=== PATIENT | female | born 1955 | race Caucasian/White ===

== ENCOUNTER → 2016-12-27 | Outpatient (CLI) | payer OTHER ==
[~2016-12-27] MED LIST: ASPIRIN 81M81 MG/TA2 PO; BLOOD PRESSURE MED; CHOLESTEROL MED; GLUCOPHAGE500 MG/TAB PO; SYNTHROID 0.0.025 MG PO
[2016-12-27 12:16] LABS: BASO # 0.1 (0.0-0.2); BASO % 1.4 % (0.0-2.0); EOS # 0.6 (0.0-0.7); GRAN # 4.3 (1.4-6.5); GRAN % 44.6 % (42.2-75.2); HEMATOCRIT 41.8 % (37.0-47.0); HEMOGLOBIN 13.9 g/dl (12.5-16.0); LYMPH # 3.9 (1.2-3.4); LYMPH % 40.8 % (20.0-51.0); MEAN CELL VOLUME 100 fl (80.0-100.0); MEAN CORPUSCULAR HEMOGLOBIN 33 pg (27.0-31.0); MEAN CORPUSCULAR HGB CONC 33 g/dl (33.0-37.0); MONO # 0.6 (0.1-0.6); MONO % 5.9 % (1.7-9.3); PLATELET COUNT 333 K/mm3 (130-400); RED BLOOD COUNT 4.18 M/mm3 (4.10-5.30); REDCELL DISTRIBUTION WIDTH-CV 14.1 % (11.5-14.5); WHITE BLOOD COUNT 9.7 K/mm3 (4.8-10.8)
[2016-12-27 12:32] LABS: ADJUSTED CALCIUM 9.5 mg/dL (8.4-10.2); ALBUMIN 4.8 gm/dL (3.5-5.0); BILIRUBIN,TOTAL 0.9 mg/dL (0.0-1.0); CALCIUM 10.1 mg/dL (8.4-10.2); CREATININE, serum 1.09 mg/dL (0.52-1.25); POTASSIUM 4.3 mmol/L (3.4-5.0); TOTAL PROTEIN 7.8 gm/dL (6.4-8.2)
[2016-12-27 12:47] LABS: THYROXINE (T4)-TOTAL 0.4 ug/dL (5.5-11.0)
[2016-12-27 13:22] LABS: THYROID STIMULATING HORMONE 49.6 uIU/mL (0.465-4.680)
== END ==
LOC: ZLAB.FHCC 11:46
DX: Z01.89 Encounter for other specified special examinations (principal)

== ENCOUNTER → 2017-01-02 | Outpatient (CLI) | payer OTHER | LOC: SUN.DIA 09:17 | DX: E11.65 Type 2 diabetes mellitus with hyperglycemia (principal); Z68.43 Body mass index [BMI] 50.0-59.9, adult; E66.9 Obesity, unspecified; Z71.3 Dietary counseling and surveillance; E78.5 Hyperlipidemia, unspecified; I10 Essential (primary) hypertension; E03.9 Hypothyroidism, unspecified ==

== ENCOUNTER → 2017-01-17 | Outpatient (CLI) | payer OTHER | LOC: COL.CARD 11:55 | DX: R60.0 Localized edema (principal) ==

== ENCOUNTER → 2017-02-02 | Outpatient (CLI) | payer SELFPAY | LOC: SUN.DIA 13:23 | DX: E11.65 Type 2 diabetes mellitus with hyperglycemia (principal); E66.9 Obesity, unspecified; Z68.42 Body mass index [BMI] 45.0-49.9, adult; Z71.3 Dietary counseling and surveillance; E78.5 Hyperlipidemia, unspecified; I10 Essential (primary) hypertension ==

== ENCOUNTER 2017-02-07 00:32 | Emergency (ER) | payer OTHER ==
[~2017-02-07] VITALS: Ht 170.2 cm; Wt 140.9 kg
[2017-02-07 00:36] VITALS: TEMP 97.2
[2017-02-07] MEDS ORDERED: GLUCOPHAGE500 MG/TAB PO (00:43)
[2017-02-07] MEDS ORDERED: ASPIRIN 81M81 MG/TA2 PO (00:43)
[2017-02-07] MEDS ORDERED: SYNTHROID 0.0.025 MG PO (00:44)
[2017-02-07] MEDS ORDERED: CHOLESTEROL MED (00:44)
[2017-02-07] MEDS ORDERED: BLOOD PRESSURE MED (00:44)
[2017-02-07 00:55] LABS: BASO # 0.1 (0.0-0.2); BASO % 0.8 % (0.0-2.0); EOS # 0.5 (0.0-0.7); EOS % 3.5 % (0-4.0); GRAN # 5.8 (1.4-6.5); GRAN % 44.2 % (42.2-75.2); HEMATOCRIT 40.7 % (37.0-47.0); HEMOGLOBIN 13.8 g/dl (12.5-16.0); LYMPH # 5.4 (1.2-3.4); LYMPH % 41.4 % (20.0-51.0); MEAN CELL VOLUME 98 fl (80.0-100.0); MEAN CORPUSCULAR HEMOGLOBIN 33 pg (27.0-31.0); MEAN CORPUSCULAR HGB CONC 34 g/dl (33.0-37.0); MEAN PLATELET VOLUME 9.8 fl (7.4-10.4); MONO # 1.2 (0.1-0.6); PLATELET COUNT 366 K/mm3 (130-400); RED BLOOD COUNT 4.15 M/mm3 (4.10-5.30); REDCELL DISTRIBUTION WIDTH-CV 12.9 % (11.5-14.5)
[2017-02-07 01:02] LABS: ADJUSTED CALCIUM 9.1 mg/dL (8.4-10.2); ALANINE AMINOTRANSFERASE 60 U/L (9-52); ALBUMIN 4.6 gm/dL (3.5-5.0); ALKALINE PHOSPHATASE 85 U/L (50-136); ANION GAP 13 mmol/L (7-16); BILIRUBIN,TOTAL 0.8 mg/dL (0.0-1.0); BLOOD UREA NITROGEN 16 mg/dL (7-17); CALCIUM 9.6 mg/dL (8.4-10.2); CARBON DIOXIDE 28 mmol/L (22-30); CHLORIDE 100 mmol/L (98-107); CREATININE, serum 0.87 mg/dL (0.52-1.25); GLUCOSE 90 mg/dL (74-106); POTASSIUM 3.8 mmol/L (3.4-5.0); SODIUM 141 mmol/L (137-145)
[2017-02-07 01:06] LABS: PROTHROMBIN TIME 10.8 SECONDS (9.7-12.8)
[2017-02-07 01:09] LABS: PARTIAL THROMBOPLASTIN TIME 28.7 SECONDS (26.0-37.0)
[2017-02-07 01:13] LABS: TROPONIN-I < 0.012 ng/mL (0.000-0.034)
[2017-02-07 03:12] VITALS: BP 121/68; PULSE 62
== END 2017-02-07 03:12 | disposition home or self-care (01) ==
LOC: COL.ER 00:32
PROVIDERS: Family Medicine
DX: R07.89 Other chest pain (principal); I10 Essential (primary) hypertension; E11.9 Type 2 diabetes mellitus without complications; Z79.84 Long term (current) use of oral hypoglycemic drugs
CPT/HCPCS: J1885

== ENCOUNTER → 2017-02-09 | Outpatient (CLI) | payer OTHER | LOC: COL.VAS 08:36 | DX: R94.31 Abnormal electrocardiogram [ECG] [EKG] (principal); R60.0 Localized edema ==

== ENCOUNTER → 2017-02-15 | Outpatient (CLI) | payer OTHER ==
[2017-02-15 12:14] LABS: ADJUSTED CALCIUM 9.1 mg/dL (8.4-10.2); BILIRUBIN,TOTAL 0.9 mg/dL (0.0-1.0); CALCIUM 9.1 mg/dL (8.4-10.2); CREATININE, serum 0.72 mg/dL (0.52-1.25); POTASSIUM 4.4 mmol/L (3.4-5.0); TOTAL PROTEIN 7.4 gm/dL (6.4-8.2)
== END ==
LOC: COL.LAB 09:53
DX: E11.9 Type 2 diabetes mellitus without complications (principal); E03.9 Hypothyroidism, unspecified

== ENCOUNTER → 2017-03-07 | Outpatient (CLI) | payer OTHER | LOC: MC.RAD 09:27 | DX: Z12.31 Encounter for screening mammogram for malignant neoplasm of breast (principal) ==

== ENCOUNTER 2017-10-22 10:38 | Emergency (ER) | payer SELFPAY ==
[~2017-10-22] VITALS: Ht 170.2 cm; Wt 138.6 kg
[2017-10-22 10:51] VITALS: TEMP 97.9
[2017-10-22] MEDS ORDERED: FORT1000TA (12:20)
[2017-10-22] MEDS ORDERED: DEMADEX10 MG PO (12:21)
[2017-10-22] MEDS ORDERED: PRINIVIL20 MG PO (12:22)
[2017-10-22] MEDS ORDERED: TYLENOL 325MG325 MG PO (12:23)
[2017-10-22] MEDS ORDERED: MEVACOR 20M20 MG/TAB PO (12:23)
[2017-10-22] MEDS ORDERED: DIABETA 5MG5 MG/TAB PO (12:24)
[2017-10-22] MEDS ORDERED: TOPROL XL 25MG25 MG PO (12:24)
[2017-10-22] MEDS ORDERED: LEVOXYL0.125 MG PO (12:25)
[2017-10-22 12:44] LABS: BASO # 0.1 (0.0-0.2); BASO % 0.7 % (0.0-2.0); EOS # 0.4 (0.0-0.7); EOS % 4.7 % (0-4.0); GRAN # 5.2 (1.4-6.5); GRAN % 57.8 % (42.2-75.2); HEMATOCRIT 39.9 % (37.0-47.0); HEMOGLOBIN 13.4 g/dl (12.5-16.0); LYMPH # 2.6 (1.2-3.4); LYMPH % 28.9 % (20.0-51.0); MEAN CELL VOLUME 93 fl (80.0-100.0); MEAN CORPUSCULAR HEMOGLOBIN 31 pg (27.0-31.0); MEAN CORPUSCULAR HGB CONC 34 g/dl (33.0-37.0); MEAN PLATELET VOLUME 10.3 fl (7.4-10.4); MONO # 0.6 (0.1-0.6); MONO % 7.1 % (1.7-9.3); PLATELET COUNT 326 K/mm3 (130-400); RED BLOOD COUNT 4.27 M/mm3 (4.10-5.30); REDCELL DISTRIBUTION WIDTH-CV 13.8 % (11.5-14.5)
[2017-10-22 12:54] LABS: ALANINE AMINOTRANSFERASE 51 U/L (9-52); ALBUMIN 4.3 gm/dL (3.5-5.0); ALKALINE PHOSPHATASE 76 U/L (50-136); ANION GAP 11 mmol/L (7-16); AST,SGOT 62 U/L (15-37); BILIRUBIN,TOTAL 0.7 mg/dL (0.0-1.0); BLOOD UREA NITROGEN 10 mg/dL (7-17); C-REACTIVE PROTEIN 0.8 mg/dL (0.0-0.9); CALCIUM 10.2 mg/dL (8.4-10.2); CARBON DIOXIDE 27 mmol/L (22-30); CHLORIDE 103 mmol/L (98-107); CREATININE, serum 0.79 mg/dL (0.52-1.25); GLUCOSE 177 mg/dL (74-106); SODIUM 141 mmol/L (137-145); TOTAL PROTEIN 7.4 gm/dL (6.4-8.2)
[2017-10-22 13:05] LABS: TROPONIN-I < 0.012 ng/mL (0.000-0.034)
[2017-10-22] MEDS ORDERED: NORCO 325 MG-51 TAB PO (14:50)
[2017-10-22] MEDS ORDERED: FLEXERIL 1010 MG/TAB PO (14:50)
[2017-10-22] MEDS ORDERED: VOLTAREN 75 DR75 MG PO (14:50)
[2017-10-22] MEDS ORDERED: ASPERCREME1 EACH TP (14:51)
[2017-10-22 15:14] VITALS: BP 136/74; PULSE 54
== END 2017-10-22 15:15 | disposition home or self-care (01) ==
LOC: COL.ER 10:38
PROVIDERS: Emergency Medicine
DX: S29.012A Strain of muscle and tendon of back wall of thorax, initial encounter (principal); E11.9 Type 2 diabetes mellitus without complications; I10 Essential (primary) hypertension; E78.5 Hyperlipidemia, unspecified; E03.9 Hypothyroidism, unspecified; Z87.891 Personal history of nicotine dependence; Z79.84 Long term (current) use of oral hypoglycemic drugs; Z79.82 Long term (current) use of aspirin; X58.XXXA Exposure to other specified factors, initial encounter
CPT/HCPCS: J1885; J2360; J3010